=== PATIENT | male | born 1975 | race Two or more races ===

== ENCOUNTER 2016-08-31 10:10 | Emergency (ER) | payer OTHER ==
[2016-08-31] MEDS ORDERED: DiphenhydrAMINE 50 mg/ml Inj IVP STA (10:50)
[2016-08-31] MEDS ORDERED: Sodium Chloride 0.9% 1,000 ML IV STA (10:50)
[2016-08-31 10:57] VITALS: BMI 19.3
--- NOTE | 2016-08-31 11:03 | ED PDOC ---
HPI: Headache Time Seen by Provider: 08/31/16 10:31 Chief Complaint (Nursing): Headache Chief Complaint (Provider): STONER History Per: Patient, Family History/Exam Limitations: no limitations Onset/Duration Of Symptoms: Days (1) Current Symptoms Are (Timing): Still Present Quality: Sharp Preceeding Symptoms: None Associated Symptoms: Nausea. denies: Photophobia, Blurred Vision, Vomiting, Extremity Weakness Additional Complaint(s): Pt diagnosed with shingles yesterday, started on Valtrex, today c/o frontal STONER not relieved with Tylenol at home. Also c/o decreased appetite and nausea. Denies fever, visual changes, photophobia, paresthesias, weakness, similar STONER in past. Past Medical History Reviewed: Nursing Documentation, Vital Signs Vital Signs: Last Vital Signs Temp Pulse Resp BP Pulse Ox 98 08/31/16 10:53 - Medical History Other PMH: Thrombocytopenia - Surgical History Surgical History: No Surg Hx - Family History Family History: States: Unknown Family Hx - Social History Ex-Smoker (has not smoked in the last 12 months): No - Home Medications Home Medications: Ambulatory Orders Medication Instructions Recorded Naproxen [Naprosyn] 500 mg PO BID PRN #15 tablet 08/31/16 - Allergies Allergies/Adverse Reactions: Allergies Allergy/AdvReac Type Severity Reaction Status Date / Time No Known Allergies Allergy Verified 08/31/16 10:52 Review of Systems Constitutional: Negative for: Fever, Chills Eyes: Negative for: Pain, Vision Change ENT: Negative for: Throat Pain Cardiovascular: Negative for: Chest Pain, Palpitations Respiratory: Negative for: Cough, Shortness of Breath Gastrointestinal: Positive for: Nausea. Negative for: Vomiting, Abdominal Pain , Diarrhea Skin: Positive for: Rash, Lesions Neurological: Positive for: Headache. Negative for: Weakness, Numbness, Incoordination, Change in Speech, Confusion, Seizures, Altered Mental Status Physical Exam - Reviewed Nursing Documentation Reviewed: Yes Vital Signs Reviewed: Yes - Physical Exam Appears: Positive for: Uncomfortable Head Exam: Positive for: ATRAUMATIC, NORMAL INSPECTION Skin: Positive for: Normal Color, Warm, Dry, Rash (Vesicular lesions along T5 dermatome, no induration) Eye Exam: Positive for: Normal appearance, EOMI, PERRL Neck: Positive for: Normal Cardiovascular/Chest: Positive for: Regular Rate, Rhythm Respiratory: Positive for: Normal Breath Sounds. Negative for: Rales, Rhonchi, Wheezing Gastrointestinal/Abdominal: Positive for: Normal Exam. Negative for: Soft Extremity: Positive for: Normal ROM Neurologic/Psych: Positive for: Alert, bowstring maker II-XII, Oriented. Negative for: Motor/Sensory Deficits, Facial Droop - Laboratory Results Result Diagrams: 08/31/16 11:45 08/31/16 11:48 - ECG O2 Sat by Pulse Oximetry: 98 - CT Scan/US CT head Other Rad Studies (CT/US): Radiology Report Reviewed (No acute intracranial abnormality.) - Progress Re-evaluation Time: 14:00 Condition: Improved Medical Decision Making Medical Decision Makin yo with herpes zoster and new onset STONER. - labs - CT head - IVF - Phenergan - Benadryl Disposition - Clinical Impression Clinical Impression: Acute headache - Disposition Referrals: Gino Razo MD [Staff Provider] - Disposition: Routine/Home Disposition Time: 14:05 Condition: IMPROVED Prescriptions: Naproxen [Naprosyn] 500 mg PO BID PRN #15 tablet PRN Reason: Pain, Moderate (4-7) Instructions: Acute Headache (ED)
[2016-08-31] MEDS ORDERED: DiphenhydrAMINE 50 mg/ml Inj ONE (11:44)
[2016-08-31 11:54] LABS: BASO % 0.6 % (0.0-2.0); EOS # 0.1 K/uL (0.0-0.7); EOS % 0.9 % (0.0-4.0); HEMOGLOBIN 15.2 g/dL (12.0-18.0); LYMPH # 0.7 K/uL (1.0-4.3); LYMPH % 10.7 % (20.0-40.0); MEAN CELL VOLUME 90.8 fl (80.0-94.0); MEAN CORPUSCULAR HEMOGLOBIN 31.5 pg (27.0-31.0); MEAN CORPUSCULAR HGB CONC 34.7 g/dL (33.0-37.0); MEAN PLATELET VOLUME 11.5 fl (7.2-11.7); MONO # 0.5 K/uL (0.0-0.8); MONO % 8.9 % (0.0-10.0); NEUT # 4.8 K/uL (1.8-7.0); NEUT % 78.9 % (50.0-75.0); NRBC % 0.1 % (0.0-0.0); RBC 4.83 Mil/uL (4.40-5.90); RED CELL DISTRIBUTION WIDTH 12.9 % (11.5-14.5); WHITE BLOOD COUNT 6.1 K/uL (4.8-10.8)
[2016-08-31 11:54] LABS: URINE BACTERIA RARE (<OCC); URINE BILIRUBIN NEGATIVE (NEGATIVE); URINE BLOOD NEGATIVE (NEGATIVE); URINE CLARITY CLEAR (Clear); URINE COLOR YELLOW (YELLOW); URINE GLUCOSE (UA) NEG (Normal); URINE LEUKOCYTE ESTERASE NEG Leu/uL (Negative); URINE NITRATE NEGATIVE (NEGATIVE); URINE PROTEIN NEGATIVE (NEGATIVE); URINE UROBILINOGEN 0.2-1.0 mg/dL (0.2-1.0)
[2016-08-31 12:09] LABS: ALB/GLOB RATIO 1.6 (1.0-2.1); ALBUMIN 4.5 g/dL (3.5-5.0); ALT/SGPT 52 U/L (21-72); AST/SGOT 30 U/L (17-59); BLOOD UREA NITROGEN 8 mg/dl (9-20); CALCIUM 9.6 mg/dL (8.4-10.2); GFR AFRICAN-AMERICAN > 60; GFR NON-AFRICAN AMERICAN > 60
[2016-08-31 12:46] VITALS: BP 113/71; PULSE 77; RESP 20; TEMP 98
--- NOTE | 2016-08-31 13:07 | CT ---
PROCEDURE: CT HEAD WITHOUT CONTRAST. HISTORY: Frontal headache COMPARISON: None available. TECHNIQUE: Axial computed tomography images were obtained through the head/brain without intravenous contrast. Radiation dose: Total exam DLP = 2029.81 mGy-cm. This CT exam was performed using one or more of the following dose reduction techniques: Automated exposure control, adjustment of the mA and/or kV according to patient size, and/or use of iterative reconstruction technique. FINDINGS: HEMORRHAGE: No intracranial hemorrhage. BRAIN: Alexander-white matter differentiation is preserved. There is no mass, mass effect or abnormal extra-axial fluid collection. There is a prominent perivascular space in the right basal ganglia. VENTRICLES: The ventricles are normal in size, shape and configuration. CALVARIUM: The skull base and calvarium are normal. PARANASAL SINUSES: There is moderate mucosal thickening in the ethmoid air cells. The remaining included paranasal sinuses are predominantly clear. MASTOID AIR CELLS: Predominantly clear. OTHER FINDINGS: None. IMPRESSION: No acute intracranial abnormality.
[2016-08-31 14:07] VITALS: O2SAT 98
== END 2016-08-31 14:52 | disposition home or self-care (01) ==
LOC: H.ER 10:10
DX: R51 Headache (principal); R11.0 Nausea; D69.6 Thrombocytopenia, unspecified